=== PATIENT | female | born 1945 | race Caucasian/White ===

== ENCOUNTER → 2017-04-17 | Day surgery (SDC) | payer MEDICARE ==
[~2017-04-17] VITALS: Ht 157.4 cm; Wt 77.1 kg
[~2017-04-17] MED LIST: ALLOPURINOL100 MG PO; ALPRAZOLAM0.5 M3 PO; AMLODIPINE-ATO1 EAC1 PO; GLUCOVANCE 2.51 EACH PO; GOOD NEIGHBOR L10 MG PO; JANUVIA100 MG PO; LEVOTHYROXINE50 MCG PO; LOSARTAN POTASS50 M1 PO; PIOGLITAZONE HC30 MG PO; TOPROL XL100 MG PO; TRIAMTERENE-HC1 EACH PO; VENLAFAXINE HYD75 M3 PO
--- NOTE | ~2017-04-17 | O ---
[place], [place] OPERATIVE NOTE NAME: TUNDE SANTIAGO [facility] #: [id number] UNIT #: [id number] ROOM: DOCTOR: JAQUAN FOWLER MD BIRTHDATE: [birth year] DOS: 04/17/2017 PREOPERATIVE DIAGNOSIS: Cataract, left eye. POSTOPERATIVE DIAGNOSIS: Cataract, left eye. OPERATION: Extracapsular cataract extraction by phacoemulsification with posterior chamber intraocular lens implantation, left eye. ANESTHESIA: Monitored standby. OPERATIVE FINDINGS AND PROCEDURE: 2% Xylocaine topical anesthetic gel was applied to the eye in the preop area. The patient was taken to the operating room and prepped and draped in the standard fashion for sterile intraocular surgery. A time out procedure was performed verifying correct patient, correct site and corrects lens with Chava Fowler M.D. The operating microscope was swung into position and the lid speculum was inserted. Using a Leda paracentesis blade, a paracentesis was made through clear cornea. Viscoelastic was used to fill the anterior chamber. Using a metal keratome a 2.4 mm self-sealing clear corneal cataract incision was made temporally at the limbus. Using a pre-bent 25 gauge cystotome needle, a standard continuous curvilinear capsulorrhexis was performed. The anterior capsule was removed with forceps. The lens nucleus was hydrodissected and phacoemulsified in the posterior chamber. Cortical material was removed with the irrigation aspiration hand piece and the posterior capsule was then polished with a curet under irrigation. The posterior chamber and capsular bag were filled with viscoelastic. A posterior chamber intraocular lens manufactured by: Abel, Model #[id number] and 19.0 diopters in strength were then inserted into the posterior chamber and within the capsular bag using the lens cartridge and injector system. Viscoelastic was removed using the irrigation aspiration handpiece. The anterior chamber was filled with balanced salt solution through the paracentesis. Both the paracentesis site and cataract incisions were hydrated with BSS and verified to be water-tight and self-sealing. Cefuroxime 1 mg/0.1 mL was injected into the anterior chamber through the paracentesis site. The incision checked to be water-tight using a Weck-Tiffanie sponge. The integrity of the cataract wound and ocular tension were checked. Lid speculum and drapes were removed. The patient was transferred from the operating room to the recovery room in satisfactory condition. [place], [place] OPERATIVE NOTE NAME: PAMELAGARRETTTUNDE M UNIT #: [id number] ROOM: DOCTOR: JAQUAN FOWLER MD BIRTHDATE: [birth year] JAQUAN FOWLER MD CM:OPRECORD:OPERATIVE NOTE [id number] JAQUAN FOWLER MD 04/17/17 1205 interface
[2017-04-17 08:10] VITALS: BP 132/76
[2017-04-17 09:41] VITALS: BP 138/72
[2017-04-17 09:55] VITALS: BP 144/78
[2017-04-17 10:10] VITALS: BP 152/62
== END | disposition home or self-care (01) ==
LOC: SDC 04-10 10:15
DX: E11.36 Type 2 diabetes mellitus with diabetic cataract (principal); I10 Essential (primary) hypertension; Z80.9 Family history of malignant neoplasm, unspecified; E03.9 Hypothyroidism, unspecified; Z98.51 Tubal ligation status; Z98.890 Other specified postprocedural states; Z79.899 Other long term (current) drug therapy

== ENCOUNTER → 2017-05-22 | Day surgery (SDC) | payer MEDICARE ==
[~2017-05-22] VITALS: Ht 157.4 cm; Wt 77.1 kg
--- NOTE | ~2017-05-22 | O ---
[place], [place] OPERATIVE NOTE NAME: TUNDE SANTIAGO [facility] #: [id number] UNIT #: [id number] ROOM: DOCTOR: JAQUAN FOWLER MD BIRTHDATE: [birth year] DOS: 05/22/2017 PREOPERATIVE DIAGNOSIS: Cataract, right eye. POSTOPERATIVE DIAGNOSIS: Cataract, right eye. OPERATION: Extracapsular cataract extraction by phacoemulsification with posterior chamber intraocular lens implantation, right eye. ANESTHESIA: Monitored standby. OPERATIVE FINDINGS AND PROCEDURE: 2% Xylocaine topical anesthetic gel was applied to the eye in the preop area. The patient was taken to the operating room and prepped and draped in the standard fashion for sterile intraocular surgery. A time out procedure was performed verifying correct patient, correct site and corrects lens with Chava Fowler M.D. The operating microscope was swung into position and the lid speculum was inserted. Using a Leda paracentesis blade, a paracentesis was made through clear cornea. Viscoelastic was used to fill the anterior chamber. Using a metal keratome a 2.4 mm self-sealing clear corneal cataract incision was made temporally at the limbus. Using a pre-bent 25 gauge cystotome needle, a standard continuous curvilinear capsulorrhexis was performed. The anterior capsule was removed with forceps. The lens nucleus was hydrodissected and phacoemulsified in the posterior chamber. Cortical material was removed with the irrigation aspiration hand piece and the posterior capsule was then polished with a curet under irrigation. The posterior chamber and capsular bag were filled with viscoelastic. A posterior chamber intraocular lens manufactured by: Abel, Model #[id number], and 19.0 diopters in strength were then inserted into the posterior chamber and within the capsular bag using the lens cartridge and injector system. Viscoelastic was removed using the irrigation aspiration handpiece. The anterior chamber was filled with balanced salt solution through the paracentesis. Both the paracentesis site and cataract incisions were hydrated with BSS and verified to be water-tight and self-sealing. Cefuroxime 1 mg/0.1 mL was injected into the anterior chamber through the paracentesis site. The incision checked to be water-tight using a Weck-Tiffanie sponge. The integrity of the cataract wound and ocular tension were checked. Lid speculum and drapes were removed. The patient was transferred from the operating room to the recovery room in satisfactory condition. [place], [place] OPERATIVE NOTE NAME: TUNDE SANTIAGO UNIT #: [id number] ROOM: DOCTOR: JAQUAN FOWLER MD BIRTHDATE: [birth year] JAQUAN FOWLER MD CM:OPRECORD:OPERATIVE NOTE 3 6 JAQUAN FOWLER MD 05/22/17 0925 interface
[2017-05-22 06:30] VITALS: BP 128/62
[2017-05-22 07:53] VITALS: BP 126/76
[2017-05-22 08:03] VITALS: BP 134/80
[2017-05-22 08:16] VITALS: BP 140/81
== END | disposition home or self-care (01) ==
LOC: SDC 05-16 08:45
DX: H26.8 Other specified cataract (principal); E11.36 Type 2 diabetes mellitus with diabetic cataract; I10 Essential (primary) hypertension; Z90.49 Acquired absence of other specified parts of digestive tract; Z90.710 Acquired absence of both cervix and uterus; Z98.51 Tubal ligation status; Z80.9 Family history of malignant neoplasm, unspecified; Z87.891 Personal history of nicotine dependence

== ENCOUNTER 2017-11-20 20:25 | Emergency (ER) | payer MEDICARE, BC ==
[~2017-11-20] VITALS: Ht 157.4 cm; Wt 78.0 kg
[2017-11-20] MEDS ORDERED: VICODIN 5-3001 EACH PO (22:07)
== END 2017-11-20 22:25 | disposition home or self-care (01) ==
LOC: ED 20:25
DX: S42.291A Other displaced fracture of upper end of right humerus, initial encounter for closed fracture (principal); Z79.899 Other long term (current) drug therapy; W17.89XA Other fall from one level to another, initial encounter; Y93.89 Activity, other specified; Y92.89 Other specified places as the place of occurrence of the external cause; Y99.8 Other external cause status

== ENCOUNTER → 2017-11-22 | Outpatient (CLI) | payer MEDICARE, BC ==
[~2017-11-22] MED LIST changes: +VICODIN 5-3001 EACH PO
== END | disposition home or self-care (01) ==
LOC: LAB 12:26 → ORTHO 12:26
DX: E55.9 Vitamin D deficiency, unspecified (principal)

== ENCOUNTER → 2017-11-23 | Outpatient (CLI) | payer MEDICARE, BC | END | disposition home or self-care (01) | LOC: CT 09:51 | DX: S42.201D Unspecified fracture of upper end of right humerus, subsequent encounter for fracture with routine healing (principal); E55.9 Vitamin D deficiency, unspecified; X58.XXXD Exposure to other specified factors, subsequent encounter ==

== ENCOUNTER 2020-05-12 15:15 | Inpatient (IN) | payer MEDICARE, BC ==
[~2020-05-12] VITALS: Ht 157.5 cm; Wt 79.1 kg
[~2020-05-12 15:15] MED LIST changes: -AMLODIPINE-ATO1 EAC1 PO; +[UNRECOGNIZED DRUG - OTHER]
[2020-05-12 15:20] VITALS: BP 154/73
--- NOTE | 2020-05-12 16:40 | NUR ---
PATIENT LEFT ARM PLACED INTO SLING.
[2020-05-12 17:28] LABS: BASO # 0.1 10*3/uL (0.0-0.1); BASO % 0.3 % (0.0-1.0); EOS # 0.3 10*3/uL (0.0-0.4); EOS % 1.5 % (1.0-4.0); HEMATOCRIT 44.4 % (37.0-47.0); LYMPH # 2.7 10*3/uL (1.3-4.4); LYMPH % 15.1 % (27.0-41.0); MEAN CELL VOLUME 93.5 fl (81.0-99.0); MEAN CORPUSCULAR HGB 29.3 pg (27.0-31.0); MEAN CORPUSCULAR HGB CONC 31.3 g/dl (33.0-37.0); MEAN PLATELET VOLUME 9.3 fl (9.6-12.3); MONO # 1.1 10*3/uL (0.1-1.0); MONO % 5.9 % (3.0-9.0); NEUT # 13.7 10*3/uL (2.3-7.9); NEUT % 76.3 % (47.0-73.0); PLATELET COUNT AUTOMATED 319 10*3/uL (130-400); RED BLOOD COUNT 4.75 10*6/uL (4.10-5.10); RED CELL DISTRI WIDTH 14.3 % (0-14.5); WHITE BLOOD COUNT 17.9 10*3/uL (4.8-10.8)
[2020-05-12 17:44] LABS: ACT PARTIAL THROMBO TIME 30.9 SECONDS (20.0-32.1); ALBUMIN 4.2 gm/dl (3.1-4.5); ALKALINE PHOSPHATASE 114 U/L (45-117); BUN 15 mg/dl (7-24); CHLORIDE 100 mmol/L (98-107); CREATININE 1.04 mg/dL (0.55-1.02); POTASSIUM 4.7 mmol/L (3.5-5.1); SGOT/AST 34 IU/L (3-35); SGPT/ALT 23 U/L (12-78); SODIUM 134 mmol/L (136-145); TOTAL PROTEIN 8.7 gm/dL (6.4-8.2)
--- NOTE | 2020-05-12 18:33 | NUR ---
ATTEMPTED TO TAKE PATIENT TO [facility]. [facility] STATED THEY COULD NOT TAKE PATIENT AT THIS TIME.
--- NOTE | 2020-05-12 19:11 | NUR ---
REPORT GIVEN TO CARSON VELIZ.
--- NOTE | 2020-05-12 19:15 | NUR ---
PER JOSE ALFREDO HALE, PT HAS SKIN TEAR TO LEFT FOREARM, LEFT KNEE AND RIGHT LOWER EXTREMITY.PT REFUSED PHOTO.
--- NOTE | 2020-05-12 19:39 | NUR ---
THIS RN CONTACTED [facility], NURSE TO RETURN CALL.
[2020-05-12 19:50] VITALS: BP 142/72
--- NOTE | 2020-05-12 19:51 | NUR ---
PT TO UNIT AT THIS TIME.
--- NOTE | 2020-05-12 19:51 | NUR ---
NURSE TO UNIT AT THIS TIME.
[2020-05-12 20:00] VITALS: BP 142/92
--- NOTE | 2020-05-12 20:00 | NUR ---
A 75, admitted to [facility], under the services of SARAY Hager DO with a diagnosis of PROXIMAL HUMERAL FRACTURE. Chief complaint is FELL AND C/O LEFT ARM PAIN. Patient arrived via stretcher from ER. Monitor applied. Initial assessment completed. Vital signs taken and recorded. SARAY HAGER DO notified of admission to the unit. Orders received. See assessment for past medical history, medications and allergies. Clothing/patient valuable form completed. DIMITRIS MUSTAFA
--- NOTE | 2020-05-12 20:12 | NUR ---
MEDICATED WITH DILAUDID AND ZOFRAN PER PRN ORDERS FOR PAIN AND NAUSEA.
[2020-05-12] MEDS ORDERED: SINGULAIR10 M1 PO (20:30)
[2020-05-12] MEDS ORDERED: [UNRECOGNIZED DRUG - CODE] (20:35)
[2020-05-12] MEDS ORDERED: VITAMIN C1000 M5 PO (20:42)
[2020-05-12] MEDS ORDERED: MULTIVITAMINS1 EAC5 PO (20:44)
[2020-05-12] MEDS ORDERED: FISH OIL OMEGA1 EAC1 PO (20:45)
[2020-05-12] MEDS ORDERED: GLUCOSAMINE H1500 MG PO (20:46)
--- NOTE | 2020-05-12 21:30 | NUR ---
DILAUDID AND ZOFRAN EFFECTIVE.
[2020-05-13] VITALS: BP 101/53
[2020-05-13 05:45] LABS: ALBUMIN 3.5 gm/dl (3.1-4.5); BUN 15 mg/dl (7-24); CHLORIDE 101 mmol/L (98-107); CHOLESTEROL 136 mg/dL (<200); CREATININE 0.83 mg/dL (0.55-1.02); POTASSIUM 4.6 mmol/L (3.5-5.1); SGOT/AST 22 IU/L (3-35); SGPT/ALT 19 U/L (12-78); SODIUM 132 mmol/L (136-145); TOTAL PROTEIN 7.4 gm/dL (6.4-8.2); TRIGLYCERIDES 66 mg/dl (<150); VLDL CHOLESTEROL 13 mg/dL (6-40)
[2020-05-13 05:46] LABS: ALKALINE PHOSPHATASE 90 U/L (45-117); HDL CHOLESTEROL 54 mg/dl (40-60); LDL CHOLESTEROL 69 mg/dL (9-159)
[2020-05-13 05:50] LABS: BASO # 0.1 10*3/uL (0.0-0.1); BASO % 0.3 % (0.0-1.0); EOS # 0.3 10*3/uL (0.0-0.4); EOS % 1.7 % (1.0-4.0); FREE T4 1.13 ng/dl (0.76-1.46); HEMATOCRIT 40.2 % (37.0-47.0); LYMPH # 3.5 10*3/uL (1.3-4.4); LYMPH % 23.6 % (27.0-41.0); MEAN CELL VOLUME 93.5 fl (81.0-99.0); MEAN CORPUSCULAR HGB 29.3 pg (27.0-31.0); MEAN CORPUSCULAR HGB CONC 31.3 g/dl (33.0-37.0); MEAN PLATELET VOLUME 9.5 fl (9.6-12.3); MONO # 1.4 10*3/uL (0.1-1.0); MONO % 9.7 % (3.0-9.0); NEUT # 9.4 10*3/uL (2.3-7.9); NEUT % 63.9 % (47.0-73.0); PLATELET COUNT AUTOMATED 272 10*3/uL (130-400); RED CELL DISTRI WIDTH 14.4 % (0-14.5); WHITE BLOOD COUNT 14.8 10*3/uL (4.8-10.8)
[2020-05-13 06:23] LABS: ACT PARTIAL THROMBO TIME 29.1 SECONDS (20.0-32.1)
[2020-05-13 07:04] LABS: VITAMIN D, 25-HYDROXY 36.7 ng/mL (30-100)
--- NOTE | 2020-05-13 07:15 | NUR ---
MEDICATED WITH TYLENOL PER PRN ORDER FOR C/O HEADACHE.
[2020-05-13 08:00] VITALS: BP 143/68
--- NOTE | 2020-05-13 08:30 | NUR ---
Process Specialist in to talk to patient. Patient states lives at home with her . There are 0 steps in the home. Physician: Dr. Tuan Leon Pharmacy: [facility] health services: would like [facility] on discharge Patient's level of ADLs: MINIMAL ASSIST Patient has working utilities: yes DME: none Follow-up physician's appointment after d/c: will be made by the hospitalist nurse director upon discharge Does patient want to access PORTAL?: no Discharge plan discussed with patient. She is sitting on the edge of her bed eating breakfast. She lives at home with her . She states she is independent in her ADLs and ambulation. Discussed short term rehab and she declines. Discussed home health care services and she is agreeable. When provided with a list of agencies she chose [facility]. When medically stable she will be discharged to home with [facility] services. She states her will provide transportation on discharge. WINSTON BREEN
--- NOTE | 2020-05-13 09:19 | NUR ---
PT A AND O, [place], PAIN TO L SHOULDER, MEDICATED, DR DIAZ HERE TO SEE PATIENT, DR DIAZ SPOKE WITH DAUGHTER
--- NOTE | 2020-05-13 09:50 | NUR ---
PHYSICAL THERAPY Eval received chart reviewed spoke with nurse in [facility] and awaiting Ortho consult regard L humeral fx, will wait until after pt see by Ortho per nsg for possible surgery pending assessment. Mindy Tomas PT
--- NOTE | 2020-05-13 09:59 | NUR ---
in to [facility]. Spoke w/ dtr Belen as to plan of care. Ice applied to left shoulder. Lovenox held at Dr. Dhillon's suggestion.
--- NOTE | 2020-05-13 11:35 | NUR ---
PHYSICAL THERAPY Pt seen by and no surgery indicated for L shld fx at this time, treating conservatively with sling. Attempted to see pt at the bedside currently pt declining eval at this time due to pain requesting to be seen later today, will follow Mindy Tomas PT
--- NOTE | 2020-05-13 11:45 | NUR ---
Occupational Therapy attempted this date. Patient in bed with ice on left shoulder with sling in place.OTR asked if patient could participate in OT eval and patient requested that OT return at a later date. OT suggested the pm and patient agreed. Mallika Slaughter OTR/Chantel
[2020-05-13 12:00] VITALS: BP 135/60
--- NOTE | 2020-05-13 12:44 | NUR ---
Declined to participate in OT/PT evaulation. Stating to much pain. Medicated for pain, see e-mar. Ambulatory to BR minimal assist.
--- NOTE | 2020-05-13 13:10 | NUR ---
Occupational Therapy evaluation completed in [facility] with full eval to follow. Precautions include fall history w/ acute left humeral fracture, fall risk,LUE sling, severe LUE pain, moderate complexity level 60065. Recommend OT per POC and home with family assist and home health SN and OT. Thank you. Mallika Slaughter OTR/Chantel
--- NOTE | 2020-05-13 13:56 | NUR ---
PHYSICAL THERAPY Physical Therapy evaluation completed in [facility] with full evaluation to follow. Recommend physical therapy per plan of care and home w w f/u HH services upon discharge. Thank you for this referral. Mindy Tomas PT
[2020-05-13 16:00] VITALS: BP 119/60
[2020-05-13 20:00] VITALS: BP 142/41
--- NOTE | 2020-05-13 20:10 | NUR ---
PT ASSISTED TO BATHROOM AND BACK TO BED. RESP-EASY AND REGULAR. C/O HEADACHE AND LEFT SHOULDER PAIN. SLING IN USE. RATES PAIN 10 ON PAIN SCALE 0-10. MEDICATED WITH NORCO PO PER PRN ORDER, SEE EMAR. CALL THEODORE GARCIA.
--- NOTE | 2020-05-13 21:00 | NUR ---
PT C/O LEFT SHOULDER PAIN WITH MOVEMENT. WILL CHECK EMAR.
--- NOTE | 2020-05-13 21:35 | NUR ---
MEDICATED WITH DILAUDID IV PER PRN ORDER, SEE EMAR. FOR C/O LEFT SHOULDER PAIN, RATES PAIN 10 ON PAIN SCALE 0-10. CALL LIGHT IN REACH.
--- NOTE | 2020-05-13 22:15 | NUR ---
PT STATES PAIN MEDICATION HELPS SOME. NO NEW C/O AT THIS TIME. CALL KRISTEN GARCIA.
[2020-05-14] VITALS: BP 127/65
--- NOTE | 2020-05-14 00:10 | NUR ---
PT SLEEPING IN BED, AWAKENS EASILY. RESP-EASY AND REGULAR. NO C/O. CALL LIGHT IN REACH. SEE SHIFT ASSESSMENT.
--- NOTE | 2020-05-14 04:05 | NUR ---
PT AMBULATORY TO BATHROOM AND BACK TO BED. CRYING IN PAIN IN LEFT SHOULDER, MEDICATED WITH DILAUDID IV PER PRN ORDER, SEE EMAR. CALL LIGHT IN REACH.
--- NOTE | 2020-05-14 05:00 | NUR ---
RESTING IN BED WITH EYES CLOSED. RESP-EASY AND REGULAR. MEDICATION SEEMS TO BE EFFECTIVE. CALL LIGHT IN REACH.
--- NOTE | 2020-05-14 06:00 | NUR ---
LAB IN TO DRAW BLOOD. NO C/O AT THIS TIME. CALL LIGHT IN REACH.
[2020-05-14 07:00] LABS: BUN 11 mg/dl (7-24); CHLORIDE 101 mmol/L (98-107); CREATININE 0.69 mg/dL (0.55-1.02); SODIUM 137 mmol/L (136-145)
--- NOTE | 2020-05-14 07:30 | NUR ---
PT RESTING IN BED.RESPS EASY AND NON LABORED. NO S/S OF DISTRESS NOTED. VSS. WHTIE BOARD UPDATED. POC DISCUSSED W PT. A/O X3. DEAF-READS LIPS. SLING NOTED TO L ARM. WILL CONTINUE TO MONITOR. CALL LIGHT WITHIN REACH. FALL PRECAUTIONS MAINTAINED.
[2020-05-14 08:00] VITALS: BP 152/72
--- NOTE | 2020-05-14 08:21 | NUR ---
PT MEDICATED FOR C/O 10/10 L SHOULDER PAIN WELL NAUSEA. WILL CONTINUE TO MONITOR FOR RELIEF. RESPS EASY AND NON LABORED. SITTING UP IN BED. NEW ICE PACK GIVEN. ASSISTED PT TO POSITION OF COMFORT. CALL LIGHT WITHIN REACH.
--- NOTE | 2020-05-14 09:10 | NUR ---
PHYSICAL THERAPY PT ROOM IS TRANSFERED TO 5TH FLOOR AND IS SITTING EOB UPON ARRIVAL, AGREEABLE TO TX. PT IS IDENTIFIED BY WRIST BAND W/ NAME AN . PT C/O PAIN IN L UE AND REQUIRES ADJUSTMENTS TO SLING TO IMPROVE COMFORT AND POSITIONING AND DECREASE PAIN. PT PERFORMS SEATED THER EX TO B LE W/ V/C AND VISUAL CUES FOR INITATION AND TECHNIQUE W/ G FOLLOW THROUGH X20 REPS W/ NO REST BREAKS REQURIED. PT REFUSES GT AT THIS TIME D/T REQUESTING TO RETURN TO BED FOR ICE TO L UE D/T PAIN AND FATIGUE. BED MOBILITY SBA/CGA W/ USE OF HR AND A REQUIRED FOR B LE. PT POSITIONED W/ HOB SLIGHLTY ELEVATED, ICE APPLIED TO LSHOULDER AND ADVISED TO USE CALL LIGHT FOR A PRIOR TO TRANSFERS. CALL LIGHT AND TRAY TABLE W/IN REACH. JAYSON JAMES, BEFORE AND AFTER SCHOOL DAYCARE WORKER
--- NOTE | 2020-05-14 09:15 | NUR ---
PT STATES MEDICATIONS EFFECTIVE
--- NOTE | 2020-05-14 09:17 | NUR ---
DR HAM INTO SEE PT
--- NOTE | 2020-05-14 14:24 | NUR ---
PT C/O 12/22 THROBBING SHOULDER PAIN.MEDICATED PER ORDER. WILL MONITOR FOR RELIEF. RESPS EASY AND NON LABORED. RESTING IN BED. CALL LIGHT WITHIN REACH.
--- NOTE | 2020-05-14 15:15 | NUR ---
MEDICATON APPEARS EFFECTIVE. PT SLEEPING.
[2020-05-14 16:00] VITALS: BP 154/70
--- NOTE | 2020-05-14 18:04 | NUR ---
PT CALLED OUT FOR PAIN MEDICATION. CALLED DR HAM BECAUSE NORCO IS NOT DUE YET. STATES HE WILL PUT ORDERS IN
--- NOTE | 2020-05-14 18:33 | NUR ---
PT C/O 8/10 L SHOULDER PAIN. MEDICATED PER ORDER. WILL MONITOR FOR RELIEF. RESPS EASY AND NON LABORED. RESTING IN BED WATCHING TV. CALL LIGHT WITHIN REACH.
--- NOTE | 2020-05-14 22:35 | NUR ---
PATIENT MEDICATED WITH NORCO FOR COMPLAINTS OF LEFT SHOULDER PAIN. WILL MONITOR FOR EFFECTIVENESS. CALL LIGHT IN REACH.
--- NOTE | 2020-05-14 23:30 | NUR ---
NORCO EFFECTIVE. PATIENT IN BED SLEEPING AT THIS TIME. NO SIGNS OR SYMPTOMS OF DISTRESS NOTED. CALL LIGHT IN REACH.
[2020-05-15] VITALS: BP 129/65
--- NOTE | 2020-05-15 01:19 | NUR ---
PATIENT MEDICATED WITH TYLENOL FOR COMPLAINTS OF A HEADACHE. WILL MONITOR FOR EFFECTIVENESS. CALL LIGHT IN REACH.
[2020-05-15 08:00] VITALS: BP 150/70
--- NOTE | 2020-05-15 09:30 | NUR ---
PHYSICAL THERAPY PATIENT SEEN TODAY FOR 1:1 SESSION WITH THIS PT. FOCUSED ON FUNCTIONAL MOBILTIY INCLUDING BED MOBS WITH SUP OF 1 AND TRANSFERS WITH SUP OF 1 AND GAIT WITH NO AD FOR 75 FT X 4 TODAY WITH SBA /CGA OF 1. D/C PLAN IS TO RETURN TO HOME WITH AND DAUGHTER'S ASSISTANCE. BLE THER EX ALSO COMPLETED TODAY FOR 3 SETS OF 15 REPS FOR IMPROVED STRENGTH OF LE'S. THANK YOU [facility] PT
[2020-05-15] MEDS ORDERED: HYDROCODONE-AC1 EAC1 PO (12:05)
--- NOTE | 2020-05-15 13:11 | NUR ---
PT REFUSED DISCHARGE WOUND PHOTOS.
--- NOTE | 2020-05-15 13:40 | NUR ---
PT DISCHARGED HOME AT THIS TIME. IV REMOVED. DISCHARGE INSTRUCTIONS AND FOLLOW UP CARE DISCUSSED. PT TRANPORTED OUT VIA WHEELCHAIR TO DAUGHTER'S CAR.
--- NOTE | 2020-05-16 14:37 | NUR ---
Faxed home health care referral along with face to face and clinical to [facility].
--- NOTE | 2020-05-24 10:48 | NUR ---
Refaxed home health order to [facility] along with face to face and clinical
--- NOTE | 2020-05-24 11:36 | NUR ---
Received call from Gladys at [facility]. Gladys spoke to daughter and they only want therapy services not nursing.
== END 2020-05-15 13:40 | disposition home health service (06) | DRG 563 ==
LOC: ED 15:15 → EDHOLD 16:40 → ICCU 16:40 → 5E 05-13 19:11
PROVIDERS: Hospitalist; Internal Medicine; ADMIT Family Medicine; ATTEND Family Medicine
PROC: 2W3BXYZ Immobilization of Left Upper Arm using Other Device (ICD-10-PCS; principal; 2020-05-13)
DX: S42.212A Unspecified displaced fracture of surgical neck of left humerus, initial encounter for closed fracture (principal); E87.1 Hypo-osmolality and hyponatremia; F33.9 Major depressive disorder, recurrent, unspecified; F41.9 Anxiety disorder, unspecified; E78.5 Hyperlipidemia, unspecified; I10 Essential (primary) hypertension; M1A.09X0 Idiopathic chronic gout, multiple sites, without tophus (tophi); D72.829 Elevated white blood cell count, unspecified; E11.65 Type 2 diabetes mellitus with hyperglycemia; E03.9 Hypothyroidism, unspecified; W19.XXXA Unspecified fall, initial encounter; Y93.89 Activity, other specified; Y92.89 Other specified places as the place of occurrence of the external cause; Z68.31 Body mass index [BMI] 31.0-31.9, adult; Y99.8 Other external cause status; Z79.899 Other long term (current) drug therapy; Q13.2 Other congenital malformations of iris

== ENCOUNTER → 2020-05-23 | Outpatient (CLI) | payer MEDICARE, BC ==
[~2020-05-23] MED LIST changes: +FISH OIL OMEGA1 EAC1 PO; +GLUCOSAMINE H1500 MG PO; +HYDROCODONE-AC1 EAC1 PO; +MULTIVITAMINS1 EAC5 PO; +SINGULAIR10 M1 PO; +VITAMIN C1000 M5 PO; +[UNRECOGNIZED DRUG - CODE]
== END | disposition home or self-care (01) ==
LOC: ORTHO 01:21
PROVIDERS: ATTEND Orthopaedic Surgery
DX: S42.212D Unspecified displaced fracture of surgical neck of left humerus, subsequent encounter for fracture with routine healing (principal); X58.XXXD Exposure to other specified factors, subsequent encounter

== ENCOUNTER → 2020-06-06 | Outpatient (CLI) | payer MEDICARE, BC | END | disposition home or self-care (01) | LOC: ORTHO 07:09 | PROVIDERS: ATTEND Orthopaedic Surgery | DX: S42.212D Unspecified displaced fracture of surgical neck of left humerus, subsequent encounter for fracture with routine healing (principal); X58.XXXD Exposure to other specified factors, subsequent encounter ==

== ENCOUNTER → 2020-06-27 | Outpatient (CLI) | payer MEDICARE, BC | END | disposition home or self-care (01) | LOC: ORTHO 01:02 | PROVIDERS: ATTEND Orthopaedic Surgery | DX: S42.212D Unspecified displaced fracture of surgical neck of left humerus, subsequent encounter for fracture with routine healing (principal); X58.XXXD Exposure to other specified factors, subsequent encounter ==

== ENCOUNTER → 2020-08-08 | Outpatient (CLI) | payer MEDICARE, BC | LOC: ORTHO 00:27 | PROVIDERS: ATTEND Orthopaedic Surgery | DX: S42.212D Unspecified displaced fracture of surgical neck of left humerus, subsequent encounter for fracture with routine healing (principal); X58.XXXD Exposure to other specified factors, subsequent encounter ==

== ENCOUNTER 2024-08-26 08:54 | Emergency (ER) | payer MEDICARE, BC ==
[~2024-08-26] VITALS: Wt 72.6 kg
[2024-08-26] MEDS ORDERED: SODIUM CHLORIDE 0.9% 1,000 ML IV ONE (09:05)
[2024-08-26 09:23] LABS: BASO % 0.2 % (0.0-1.0); EOS % 0.1 % (1.0-4.0); HEMATOCRIT 42.4 % (37.0-47.0); MEAN CORPUSCULAR HGB 30.6 pg (27.0-31.0); MEAN CORPUSCULAR HGB CONC 32.5 g/dl (33.0-37.0); MEAN PLATELET VOLUME 9.3 fl (9.6-12.3); MONO # 1.2 10*3/uL (0.1-1.0); MONO % 6.7 % (3.0-9.0); NEUT # 15.1 10*3/uL (2.3-7.9); NEUT % 84.3 % (47.0-73.0); PLATELET COUNT AUTOMATED 320 10*3/uL (130-400); RED BLOOD COUNT 4.51 10*6/uL (4.10-5.10); RED CELL DISTRI WIDTH 14.3 % (0-14.5); WHITE BLOOD COUNT 17.9 10*3/uL (4.8-10.8)
[2024-08-26 09:56] LABS: BUN 19 mg/dl (9-23); CHLORIDE 95 mmol/L (98-107); POTASSIUM 3.9 mmol/L (3.4-5.1)
== END 2024-08-26 10:39 | disposition short-term general hospital (02) ==
LOC: ED 08:54
PROVIDERS: Emergency Medicine
DX: S06.5XAA Traumatic subdural hemorrhage with loss of consciousness status unknown, initial encounter (principal); E11.9 Type 2 diabetes mellitus without complications; I10 Essential (primary) hypertension; E78.5 Hyperlipidemia, unspecified; R41.82 Altered mental status, unspecified; Z98.890 Other specified postprocedural states; Z90.710 Acquired absence of both cervix and uterus; Z90.49 Acquired absence of other specified parts of digestive tract; W19.XXXA Unspecified fall, initial encounter; Y93.89 Activity, other specified; Y92.129 Unspecified place in nursing home as the place of occurrence of the external cause; Y99.8 Other external cause status

== ENCOUNTER 2024-09-13 20:52 | Emergency (ER) | payer MEDICARE, BC ==
[~2024-09-13] VITALS: Ht 157.4 cm; Wt 70.3 kg
[2024-09-13] MEDS ORDERED: LEVETIRACETAM 500 MG TAB PO ONE ×2 (21:40)
[2024-09-13] MEDS ORDERED: LACOSAMIDE 50 MG TAB PO ONE ×2 (21:40→21:45)
== END 2024-09-13 22:49 | disposition home or self-care (01) ==
LOC: ED 20:52
DX: R56.9 Unspecified convulsions (principal); E11.9 Type 2 diabetes mellitus without complications; I10 Essential (primary) hypertension; Z76.0 Encounter for issue of repeat prescription; Z88.8 Allergy status to other drugs, medicaments and biological substances; Z98.890 Other specified postprocedural states

== ENCOUNTER 2024-09-23 17:34 | Emergency (ER) | payer MEDICARE, BC ==
[~2024-09-23] VITALS: Wt 70.3 kg
== END 2024-09-23 21:15 | disposition home or self-care (01) ==
LOC: ED 17:34
DX: S05.11XA Contusion of eyeball and orbital tissues, right eye, initial encounter (principal); I10 Essential (primary) hypertension; F41.9 Anxiety disorder, unspecified; F32.A Depression, unspecified; E11.9 Type 2 diabetes mellitus without complications; Z79.899 Other long term (current) drug therapy; Z88.8 Allergy status to other drugs, medicaments and biological substances; W06.XXXA Fall from bed, initial encounter; Y93.89 Activity, other specified; Y92.89 Other specified places as the place of occurrence of the external cause; Y99.8 Other external cause status

== ENCOUNTER → 2024-09-25 | Outpatient (CLI) | payer MEDICARE, BC | END | disposition home or self-care (01) | LOC: CT 00:44 | PROVIDERS: ATTEND Neurological Surgery | DX: Z09 Encounter for follow-up examination after completed treatment for conditions other than malignant neoplasm (principal); S06.5XAA Traumatic subdural hemorrhage with loss of consciousness status unknown, initial encounter; Z98.890 Other specified postprocedural states; X58.XXXA Exposure to other specified factors, initial encounter; Y93.89 Activity, other specified; Y92.89 Other specified places as the place of occurrence of the external cause; Y99.8 Other external cause status ==

== ENCOUNTER → 2024-11-16 | Outpatient (CLI) | payer MEDICARE, BC | END | disposition home or self-care (01) | LOC: CT 11:00 | PROVIDERS: ATTEND Neurological Surgery | DX: S06.5XAA Traumatic subdural hemorrhage with loss of consciousness status unknown, initial encounter (principal); Z98.890 Other specified postprocedural states; X58.XXXA Exposure to other specified factors, initial encounter; Y93.89 Activity, other specified; Y92.89 Other specified places as the place of occurrence of the external cause; Y99.8 Other external cause status ==

== ENCOUNTER → 2025-05-07 | Outpatient (CLI) | payer MEDICARE, BC | END | disposition home or self-care (01) | LOC: CT 00:09 | PROVIDERS: ATTEND Psychiatry & Neurology Neurology | DX: S06.5XAA Traumatic subdural hemorrhage with loss of consciousness status unknown, initial encounter (principal); R56.9 Unspecified convulsions; G31.9 Degenerative disease of nervous system, unspecified; M19.09 Primary osteoarthritis, other specified site; X58.XXXA Exposure to other specified factors, initial encounter; Y93.89 Activity, other specified; Y92.89 Other specified places as the place of occurrence of the external cause; Y99.8 Other external cause status ==